=== PATIENT | female | born 1955 | race Caucasian/White ===

== ENCOUNTER 2017-08-23 14:19 | Outpatient (CLI) | payer OTHER ==
--- NOTE | 2017-08-23 15:07 | RAD ---
THORACIC SPINE RADIOGRAPHS THREE VIEWS: Date: 08-23-17 Provided Clinical History: Back pain. FINDINGS: Thoracic alignment appears normal. Vertebral body heights appear preserved. Pedicles appear intact. M ild multilevel thoracic disc degenerative changes are seen. IMPRESSION: Thoracic spine degenerative change. POS: [facility]
== END 2017-08-23 14:20 | disposition home or self-care (01) ==
LOC: SCSRAD 14:19
PROVIDERS: ATTEND Family Medicine
DX: M54.6 Pain in thoracic spine (principal); M47.894 Other spondylosis, thoracic region
CPT/HCPCS: 72072

== ENCOUNTER 2017-11-12 13:26 | Outpatient (CLI) | payer OTHER | END 2017-11-12 13:27 | disposition home or self-care (01) | LOC: BICMAMMO 13:26 | PROVIDERS: ATTEND Family Medicine | DX: Z12.31 Encounter for screening mammogram for malignant neoplasm of breast (principal) | CPT/HCPCS: 77063; 77067 ==

== ENCOUNTER 2024-06-25 15:09 | Outpatient (CLI) | payer MEDICARE | END 2024-06-25 15:10 | disposition home or self-care (01) | LOC: SCSRAD 15:09 | PROVIDERS: ATTEND Family Medicine | DX: R05.3 Chronic cough (principal) | CPT/HCPCS: 71046 ==